=== PATIENT | male | born 1985 | race Caucasian/White ===

== ENCOUNTER 2021-08-03 19:15 | Emergency (ER) | payer SELFPAY ==
[~2021-08-03] VITALS: Ht 170 cm; Wt 74.2 kg
[2021-08-03] MEDS ORDERED: AMOXICILLIN 500 MG (POLYMOX) CAP PO STA (19:28)
--- NOTE | 2021-08-03 19:28 | ED EENT ---
History of Present Illness General Stated Complaint: LT SIDE TOOTH PAIN History of Present Illness Date Seen by Provider: Aug 03, 2021 Time Seen by Provider: 19:23 Initial Comments 35-year-old male presents with left-sided dental pain. Is been going on for least 6 years. Patient reports that he got worse the last day or 2. He has an appointment in 3 days with a dentist. Patient reports in the past he is gone [place] [facility] and [place] [facility]. Patient took 2000 mg of Tylenol around 3 PM. No nausea vomiting or other systemic complaints Allergies and Home Medications Allergies Coded Allergies: No Known Drug Allergies (Unverified , 08/03/21) Patient Home Medication List Home Medication List Reviewed: Yes Amoxicillin (Amoxicillin) 500 Mg Capsule, 500 MG PO TID Prescribed by: CHRISTINA CORDON on 08/03/211937 Naproxen (Naprosyn) 500 Mg Tablet, 500 MG PO BID Prescribed by: CHRISTINA CORDON on 08/03/211937 Review of Systems Review of Systems Constitutional: no symptoms reported Eyes: No Symptoms Reported Ears: No Symptoms Reported Nose: no symptoms reported Mouth: see HPI Throat: no symptoms reported Respiratory: no symptoms reported Cardiovascular: no symptoms reported Gastrointestinal: no symptoms reported Musculoskeletal: no symptoms reported Physical Exam Vital Signs Vital Signs - First Documented 08/03/21 19:20 Temp 36.6 Pulse 78 Resp 15 B/P (MAP) 157/89 (111) O2 Delivery Room Air Height, Weight, BMI Height: '" Weight: lbs. oz. kg; BMI Method: General Appearance: no apparent distress Mouth/Throat: other (Severe dental carry with fractured tooth in the left lower side) Cardiovascular: normal peripheral pulses, regular rate, rhythm Respiratory: no respiratory distress, no accessory muscle use Neurologic/Psychiatric: alert, normal mood/affect, oriented x 3 Skin: normal color, warm/dry Progress/Results/Core Measures Results/Orders My Orders Orders - CHRISTINA CORDON DO Amoxicillin Capsule (Polymox Capsule) (08/03/21 19:28) Oxycodone Immediate Rel Tablet (Oxyir Ta (08/03/21 19:45) Medications Given in ED Current Medications Medications Dose Ordered Sig/Camelia Route Start Time Stop Time Status Last Admin Dose Admin Oxycodone HCl 5 mg ONCE ONCE PO 08/03/21 19:45 08/03/21 19:46 DC 08/03/21 19:38 5 MG Vital Signs/I&O 08/03/21 08/03/21 19:20 19:48 Temp 36.6 36.6 Pulse 78 78 Resp 15 15 B/P (MAP) 157/89 (111) 157/89 O2 Delivery Room Air Room Air Departure Impression Primary Impression: Dental caries extending into dentine Disposition: HOME, SELF-CARE Condition: Stable Departure-Patient Inst. Referrals: NO,LOCAL PHYSICIAN (PCP/Family) Primary Care Physician Patient Instructions: Tooth Decay, Adult (DC), Dental Pain (DC) Scripts Naproxen (Naprosyn) 500 Mg Tablet 500 MG PO BID, #30 TAB 0 Refills Prov: CHRISTINA CORDON DO 08/03/21 Amoxicillin (Amoxicillin) 500 Mg Capsule 500 MG PO TID, #21 CAP 0 Refills Prov: IBRAHIMA CORDONR L DO 08/03/21 CHRISTINA CORDON DO Aug 03, 2021 19:28
[2021-08-03] MEDS ORDERED: AMOX500C2 PO (19:38)
[2021-08-03] MEDS ORDERED: NAPR-1071 PO (19:38)
[2021-08-03 19:48] VITALS: BP 157/89
== END 2021-08-03 19:48 | disposition home or self-care (01) ==
LOC: ER FS 19:18
DX: K02.9 Dental caries, unspecified (principal)
CPT/HCPCS: 99283

== ENCOUNTER 2022-04-24 10:37 | Emergency (ER) | payer BC ==
[~2022-04-24] VITALS: Ht 170 cm; Wt 85.0 kg
[~2022-04-24 10:37] MED LIST: AMOX500C2 PO; NAPR-1071 PO
--- NOTE | 2022-04-24 11:04 | ED Back Pain ---
General Chief Complaint: - Reproductive Stated Complaint: LEFT LEG PAIN/GROIN Source of Information: Patient Exam Limitations: No Limitations History of Present Illness Date Seen by Provider: Apr 24, 2022 Time Seen by Provider: 10:45 Initial Comments Patient is a 36-year-old male who presents with intermittent left lower paravertebral back pain radiating to his left leg below the knee. Symptoms began 5 days ago. Patient denies trauma but does report repetitive back strain type activity at work. Patient is constantly bending and lifting. Pain in the left low back is described as dull with sharp component is worse with palpation movement and ambulation. It radiates below the left knee to the foot. Denies weakness loss of sensation in the left leg. Denies abdominal pain. He has been taking Tylenol with limited relief. Patient is also concerned about possible infected hair follicle located on the scrotum. Timing/Duration: 5-6 Days Severity: Moderate Pain/Injury Location: Other Radiation: Other Method of Injury: Other Modifying Factors: Improves With Other Associated Symptoms: other Allergies and Home Medications Allergies Coded Allergies: No Known Drug Allergies (Unverified , 08/03/21) Patient Home Medication List Home Medication List Reviewed: Yes Amoxicillin (Amoxicillin) 500 Mg Capsule, 500 MG PO TID Prescribed by: CHRISTIAN CORDON on 08/03/211937 Naproxen (Naprosyn) 500 Mg Tablet, 500 MG PO BID Prescribed by: CHRISTINA CORDON on 08/03/211937 Review of Systems Constitutional: see HPI EENTM: see HPI Respiratory: see HPI Cardiovascular: see HPI Gastrointestinal: see HPI Genitourinary: see HPI Musculoskeletal: see HPI Skin: see HPI Psychiatric/Neurological: See HPI All Other Systems Reviewed Negative Unless Noted: Yes Past Aixgcuj-Iocksn-Pxhyca Hx Patient Social History Tobacco Use?: Yes Substance use?: No Alcohol Use?: No Pt feels they are or have been: No Physical Exam Vital Signs Capillary Refill : Height, Weight, BMI Height: '" Weight: lbs. oz. kg; 25.00 BMI Method: General Appearance: No Apparent Distress, WD/WN, Anxious Cardiovascular: Regular Rate, Rhythm, No Edema Respiratory: Lungs Clear, Normal Breath Sounds Gastrointestinal: Soft, Other (Minimally inflamed scrotum in the region of removed hair follicle.) Back: No CVA Tenderness, Muscle Spasm (Left lower paravertebral muscle spasm) Extremity: No Calf Tenderness Neurologic/Psychiatric: No Motor/Sensory Deficits, Other (Negative SLRs) Departure Communication (Admissions) Low back pain consistent with sciatica. No focal neurologic deficits. Recommendations for supportive care workplace restrictions with PCP follow-up. Patient education provided. Return precautions reviewed. Patient verbalizes understanding agreement discharge instructions prior to departure. Impression Primary Impression: Acute left lumbar radiculopathy Disposition: HOME, SELF-CARE Condition: Stable Departure-Patient Inst. Decision time for Depature: 11:02 Referrals: NO,LOCAL PHYSICIAN (PCP/Family) Primary Care Physician Patient Instructions: Radiculopathy Add. Discharge Instructions: You were evaluated in the emergency department for pain rating from your low back to your left leg. This is consistent with a compressed nerve either from strained muscle or intervertebral disc. Please take 600 mg of ibuprofen 3 times daily and muscle relaxant as directed. Do not attempt to drive or perform any dangerous activity while taking the muscle relaxant. Avoid strenuous physical activity and heavy lifting and follow-up with your PCP for reevaluation in 1 week. Return to the ED if new or worsening symptoms. All discharge instructions reviewed with patient and/or family. Voiced understanding. Scripts Cyclobenzaprine HCl (Cyclobenzaprine HCl) 10 Mg Tablet 10 MG PO TID, #30 TAB Prov: IRISH TORRES DO 04/24/22 Work/School Note: Work Release Form Date Seen in the Emergency Department: Apr 24, 2022 Return to Work: Apr 27, 2022 Other Restrictions Listed Below: No lifting greater than 20 lbs, bending, or prolonged lifting until 05/04. IRISH TORRES DO Apr 24, 2022 11:04
[2022-04-24] MEDS ORDERED: CYCL10TA25 PO (11:05)
[2022-04-24 11:11] VITALS: BP 130/96
== END 2022-04-24 11:10 | disposition home or self-care (01) ==
LOC: EDUNIT# 10:37 → ER FS 10:42
DX: M54.16 Radiculopathy, lumbar region (principal); Z28.310 Unvaccinated for COVID-19; X50.3XXA Overexertion from repetitive movements, initial encounter
CPT/HCPCS: 99281